=== PATIENT | male | born 1990 | race African-American/Black ===

== ENCOUNTER 2022-04-27 08:50 | Emergency (ER) | payer OTHER ==
[~2022-04-27] VITALS: Ht 172.7 cm; Wt 75.0 kg
[2022-04-27 08:53] VITALS: BP 132/87
== END 2022-04-27 09:46 ==
LOC: ER 08:50
DX: M25.532 Pain in left wrist (principal); M25.531 Pain in right wrist; J45.909 Unspecified asthma, uncomplicated; Z13.9 Encounter for screening, unspecified
CPT/HCPCS: 99283